=== PATIENT | female | born 1950 | race Caucasian/White ===

== ENCOUNTER → 2018-02-23 | Outpatient (CLI) | payer OTHER ==
[2018-02-23 09:00] LABS: Basophils # (auto) 0 uL; Basophils % (auto) 0.5 % (0.0-2.0); Eosinophils # (auto) 0.3 uL; Eosinophils % (auto) 4.4 % (0.0-7.0); Hematocrit 42.4 % (36.0-46.0); Hemoglobin 14.1 g/dL (12.2-16.2); Lymphocytes # (auto) 1.5 uL; Lymphocytes % (auto) 25.1 % (10.0-50.0); Mean Corpuscular Hemoglobin 31.2 pg (28.0-32.0); Mean Corpuscular Hgb Conc. 33.3 g/dL (32.0-36.0); Mean Corpuscular Volume 93.7 fL (80.0-100.0); Monocytes # (auto) 0.5 uL; Monocytes % (auto) 9.1 % (0.0-12.0); Neutrophils # (auto) 3.6 uL; Neutrophils % (auto) 60.9 % (37.0-80.0); Platelet Count (auto) 229 10^3/uL (140-450); Red Blood Cells 4.53 10^6/uL (4.0-5.20); Red Cell Distribution Width 13.5 % (11.8-14.3); White Blood Cell 5.9 10^3/uL (4.4-10.8)
[2018-02-23 09:26] LABS: T3 Total 0.93 ng/mL (0.60-1.81)
[2018-02-23 09:28] LABS: Free T4 (Free Thyroxine) 0.99 ng/dL (0.89-1.76)
[2018-02-23 09:37] LABS: BUN/Creatinine Ratio 12.8; Bilirubin, Total 0.4 mg/dL (0.2-1.0); Calcium 8.7 mg/dL (8.5-10.1); Potassium 4.2 mmol/L (3.5-5.1); Total Protein 6.9 g/dL (6.4-8.2)
== END | disposition home or self-care (01) ==
LOC: LAB 07:23
PROVIDERS: ATTEND Physician Assistant
DX: Z12.11 Encounter for screening for malignant neoplasm of colon (principal); I10 Essential (primary) hypertension; E78.2 Mixed hyperlipidemia; E03.9 Hypothyroidism, unspecified; I73.00 Raynaud's syndrome without gangrene
CPT/HCPCS: 36415; 80053; 80061; 82270; 84439; 84443; 84480; 85025

== ENCOUNTER → 2019-01-22 | Outpatient (CLI) | payer OTHER ==
[2019-01-22 08:02] LABS: Basophils # (auto) 0 uL; Basophils % (auto) 0.9 % (0.0-2.0); Eosinophils # (auto) 0.2 uL; Eosinophils % (auto) 4.4 % (0.0-7.0); Hematocrit 44.7 % (36.0-46.0); Hemoglobin 15.1 g/dL (12.2-16.2); Lymphocytes # (auto) 1.6 uL; Lymphocytes % (auto) 29.8 % (10.0-50.0); Mean Corpuscular Hemoglobin 31.3 pg (28.0-32.0); Mean Corpuscular Hgb Conc. 33.7 g/dL (32.0-36.0); Mean Corpuscular Volume 92.9 fL (80.0-100.0); Monocytes # (auto) 0.5 uL; Monocytes % (auto) 9.5 % (0.0-12.0); Neutrophils # (auto) 3.1 uL; Neutrophils % (auto) 55.4 % (37.0-80.0); Platelet Count (auto) 210 10^3/uL (140-450); Red Blood Cells 4.81 10^6/uL (4.0-5.20); Red Cell Distribution Width 13.1 % (11.8-14.3); White Blood Cell 5.5 10^3/uL (4.4-10.8)
[2019-01-22 08:36] LABS: Potassium 4.3 mmol/L (3.5-5.1)
[2019-01-22 08:46] LABS: Albumin 4.1 g/dL (3.4-5.0); BUN/Creatinine Ratio 14.6; Bilirubin, Total 0.5 mg/dL (0.2-1.0); Calcium 8.9 mg/dL (8.5-10.1); Total Protein 7.2 g/dL (6.4-8.2)
== END | disposition home or self-care (01) ==
LOC: LAB 07:05
PROVIDERS: ATTEND Physician Assistant
DX: Z00.01 Encounter for general adult medical examination with abnormal findings (principal); E03.9 Hypothyroidism, unspecified; I10 Essential (primary) hypertension; E78.2 Mixed hyperlipidemia; I73.00 Raynaud's syndrome without gangrene
CPT/HCPCS: 36415; 80053; 80061; 84443; 85025

== ENCOUNTER → 2019-07-02 | Outpatient (CLI) | payer OTHER | END | disposition home or self-care (01) | LOC: LAB 10:45 | PROVIDERS: ATTEND Physician Assistant | DX: Z00.00 Encounter for general adult medical examination without abnormal findings (principal); E03.9 Hypothyroidism, unspecified; I10 Essential (primary) hypertension | CPT/HCPCS: 82274 ==

== ENCOUNTER → 2020-02-05 | Outpatient (CLI) | payer OTHER ==
[2020-02-05 07:35] LABS: Basophils # (auto) 0 10 ^3/uL (0-0.2); Basophils % (auto) 0.8 % (0.0-2.0); Eosinophils # (auto) 0.1 10 ^3/uL (0-0.8); Eosinophils % (auto) 1.9 % (0.0-7.0); Hematocrit 47.4 % (36.0-46.0); Hemoglobin 15.8 g/dL (12.2-16.2); Lymphocytes # (auto) 1.4 10 ^3/uL (0.4-5.4); Lymphocytes % (auto) 26.4 % (10.0-50.0); Mean Corpuscular Hgb Conc. 33.3 g/dL (32.0-36.0); Monocytes # (auto) 0.6 10 ^3/uL (0-1.3); Monocytes % (auto) 10.5 % (0.0-12.0); Neutrophils # (auto) 3.3 10 ^3/uL (1.6-8.6); Neutrophils % (auto) 60.4 % (37.0-80.0); Nucleated Red Blood Cells % 0.1 %; Platelet Count (auto) 234 10^3/uL (140-450); Red Blood Cells 5.09 10^6/uL (4.0-5.20); Red Cell Distribution Width 12.9 % (11.8-14.3); White Blood Cell 5.5 10^3/uL (4.4-10.8)
[2020-02-05 07:57] LABS: Albumin 4.3 g/dL (3.4-5.0); Calcium 9.2 mg/dL (8.5-10.1)
[2020-02-05 08:01] LABS: BUN/Creatinine Ratio 12.3; Bilirubin, Total 0.6 mg/dL (0.2-1.0); Total Protein 7.8 g/dL (6.4-8.2)
== END | disposition home or self-care (01) ==
LOC: LAB 07:08
PROVIDERS: ATTEND Physician Assistant
DX: I10 Essential (primary) hypertension (principal); I73.00 Raynaud's syndrome without gangrene; E03.9 Hypothyroidism, unspecified; E78.2 Mixed hyperlipidemia; F43.9 Reaction to severe stress, unspecified; Z80.1 Family history of malignant neoplasm of trachea, bronchus and lung
CPT/HCPCS: 36415; 80053; 80061; 84443; 85025

== ENCOUNTER → 2020-10-07 | Outpatient (CLI) | payer OTHER | END | disposition home or self-care (01) | LOC: LAB 12:46 | PROVIDERS: ATTEND Physician Assistant | DX: Z20.828 Contact with and (suspected) exposure to other viral communicable diseases (principal) ==

== ENCOUNTER → 2022-03-22 | Outpatient (CLI) | payer OTHER | END | disposition home or self-care (01) | LOC: LAB 08:23 | PROVIDERS: ATTEND Nurse Practitioner Family | DX: Z00.00 Encounter for general adult medical examination without abnormal findings (principal); I10 Essential (primary) hypertension; E03.9 Hypothyroidism, unspecified; E78.2 Mixed hyperlipidemia | CPT/HCPCS: 82274 ==

== ENCOUNTER → 2023-02-06 | Outpatient (CLI) | payer OTHER ==
[2023-02-06 07:48] LABS: Basophils # (auto) 0.1 10 ^3/uL (0-0.2); Eosinophils # (auto) 0.1 10 ^3/uL (0-0.8); Eosinophils % (auto) 2.5 % (0.0-7.0); Hematocrit 43.3 % (36.0-46.0); Hemoglobin 14.7 g/dL (12.2-16.2); Lymphocytes # (auto) 1.6 10 ^3/uL (0.4-5.4); Mean Corpuscular Hemoglobin 31.7 pg (28.0-32.0); Mean Corpuscular Hgb Conc. 33.9 g/dL (32.0-36.0); Mean Corpuscular Volume 93.3 fL (80.0-100.0); Monocytes # (auto) 0.6 10 ^3/uL (0-1.3); Monocytes % (auto) 11.9 % (0.0-12.0); Neutrophils % (auto) 55.6 % (37.0-80.0); Nucleated Red Blood Cells % 0.1 %; Red Blood Cells 4.64 10^6/uL (4.0-5.20); Red Cell Distribution Width 13.3 % (11.8-14.3); White Blood Cell 5.4 10^3/uL (4.4-10.8)
[2023-02-06 08:42] LABS: Bilirubin, Total 0.5 mg/dL (0.2-1.0); Calcium 9.2 mg/dL (8.5-10.1)
== END | disposition home or self-care (01) ==
LOC: LAB 07:25
PROVIDERS: ATTEND Nurse Practitioner Family
DX: I10 Essential (primary) hypertension (principal); E78.2 Mixed hyperlipidemia; E03.9 Hypothyroidism, unspecified
CPT/HCPCS: 36415; 80053; 80061; 82270; 82306; 84439; 84443; 85025; 86803

== ENCOUNTER → 2023-07-17 | Outpatient (CLI) | payer OTHER | END | disposition home or self-care (01) | LOC: EEVIPCON → XYW 10:32 | PROVIDERS: ATTEND Student in an Organized Health Care Education/Training Program | DX: I34.0 Nonrheumatic mitral (valve) insufficiency (principal); R07.9 Chest pain, unspecified; I51.7 Cardiomegaly | CPT/HCPCS: 93306 ==

== ENCOUNTER → 2023-09-18 | Outpatient (CLI) | payer OTHER ==
[~2023-09-18] VITALS: Ht 165.1 cm; Wt 76.2 kg
[~2023-09-18] MED LIST: ADENOSINE 64 MG in GIVE UN-DILUTED 0 ML IV STA
== END | disposition home or self-care (01) ==
LOC: XYW 08:00
PROVIDERS: ATTEND Student in an Organized Health Care Education/Training Program
DX: R07.9 Chest pain, unspecified (principal); I10 Essential (primary) hypertension; E78.5 Hyperlipidemia, unspecified
CPT/HCPCS: 78452; 93017; A9500; J0153

== ENCOUNTER → 2023-11-01 | Outpatient (CLI) | payer OTHER ==
[2023-11-01 09:05] LABS: Lipase 50 U/L (12-53)
[2023-11-01 09:06] LABS: Amylase 293 U/L (30-118)
== END | disposition home or self-care (01) ==
LOC: LAB 07:02
PROVIDERS: ATTEND Nurse Practitioner Family
DX: R12 Heartburn (principal)
CPT/HCPCS: 36415; 82150; 82274; 83690

== ENCOUNTER → 2024-08-16 | Outpatient (CLI) | payer OTHER ==
[2024-08-16 07:47] LABS: Basophils # (auto) 0.1 10 ^3/uL (0-0.2); Basophils % (auto) 0.9 % (0.0-2.0); Eosinophils # (auto) 0.1 10 ^3/uL (0-0.8); Eosinophils % (auto) 2.1 % (0.0-7.0); Hematocrit 44.1 % (36.0-46.0); Hemoglobin 14.9 g/dL (12.2-16.2); Lymphocytes # (auto) 1.8 10 ^3/uL (0.4-5.4); Lymphocytes % (auto) 30.7 % (10.0-50.0); Mean Corpuscular Hemoglobin 31.6 pg (28.0-32.0); Mean Corpuscular Hgb Conc. 33.9 g/dL (32.0-36.0); Mean Corpuscular Volume 93.2 fL (80.0-100.0); Monocytes # (auto) 0.6 10 ^3/uL (0-1.3); Monocytes % (auto) 10.1 % (0.0-12.0); Neutrophils # (auto) 3.3 10 ^3/uL (1.6-8.6); Neutrophils % (auto) 56.2 % (37.0-80.0); Platelet Count (auto) 285 10^3/uL (140-450); Red Blood Cells 4.73 10^6/uL (4.0-5.20); Red Cell Distribution Width 12.9 % (11.8-14.3)
[2024-08-16 08:30] LABS: Alanine Aminotransferase 19 U/L (7-40); Albumin 4.5 g/dL (3.2-4.8); Alkaline Phosphatase 50 U/L (46-116); Anion Gap 7 (5-15); Aspartate Aminotransferase 18 U/L (13-40); BUN/Creatinine Ratio 11.8 (10.0-20.0); Blood Urea Nitrogen 12 mg/dL (9-23); Calcium 9.3 mg/dL (8.7-10.4); Carbon Dioxide 28 mmol/L (20-31); Chloride 107 mmol/L (98-107); Cholesterol 178 mg/dL (< 200); Glucose 104 mg/dL (74-106); HDL Cholesterol 43 mg/dL (40-59); LDL Cholesterol 119 mg/dL (< 100); Potassium 4.2 mmol/L (3.5-5.1); Sodium 142 mmol/L (136-145); Triglycerides 122 mg/dL (< 150)
[2024-08-16 08:31] LABS: Bilirubin, Total 0.5 mg/dL (0.2-1.0); Total Protein 6.9 g/dL (5.7-8.2)
== END | disposition home or self-care (01) ==
LOC: LAB 07:17
PROVIDERS: ATTEND Nurse Practitioner Family
DX: Z00.01 Encounter for general adult medical examination with abnormal findings (principal); E03.9 Hypothyroidism, unspecified; E78.5 Hyperlipidemia, unspecified
CPT/HCPCS: 36415; 80053; 80061; 84443; 85025

== ENCOUNTER → 2024-08-27 | Outpatient (CLI) | payer OTHER | END | disposition home or self-care (01) | LOC: LAB 13:50 | PROVIDERS: ATTEND Nurse Practitioner Family | DX: Z12.11 Encounter for screening for malignant neoplasm of colon (principal); Z00.01 Encounter for general adult medical examination with abnormal findings; E78.5 Hyperlipidemia, unspecified; E03.9 Hypothyroidism, unspecified | CPT/HCPCS: 82270 ==

== ENCOUNTER → 2024-12-13 | Outpatient (CLI) | payer OTHER ==
[2024-12-14 08:07] LABS: AFP Serum Tumor Marker 2.2 ng/mL (0.0-9.2)
== END | disposition home or self-care (01) ==
LOC: LAB 07:12
PROVIDERS: ATTEND Specialist
DX: Z86.19 Personal history of other infectious and parasitic diseases (principal)
CPT/HCPCS: 82105

== ENCOUNTER → 2025-03-15 | Day surgery (SDC) | payer OTHER ==
[2025-03-12 08:56] LABS: Basophils # (auto) 0 10 ^3/uL (0-0.2); Basophils % (auto) 0.7 % (0.0-2.0); Eosinophils # (auto) 0.1 10 ^3/uL (0-0.8); Eosinophils % (auto) 2.4 % (0.0-7.0); Hematocrit 43.7 % (36.0-46.0); Lymphocytes # (auto) 1.5 10 ^3/uL (0.4-5.4); Lymphocytes % (auto) 27.6 % (10.0-50.0); Mean Corpuscular Hemoglobin 31.7 pg (28.0-32.0); Mean Corpuscular Hgb Conc. 34.2 g/dL (32.0-36.0); Mean Corpuscular Volume 92.7 fL (80.0-100.0); Monocytes # (auto) 0.7 10 ^3/uL (0-1.3); Monocytes % (auto) 13.1 % (0.0-12.0); Neutrophils # (auto) 3.1 10 ^3/uL (1.6-8.6); Neutrophils % (auto) 56.2 % (37.0-80.0); Platelet Count (auto) 215 10^3/uL (140-450); Red Blood Cells 4.72 10^6/uL (4.0-5.20); Red Cell Distribution Width 13.1 % (11.8-14.3); White Blood Cell 5.5 10^3/uL (4.4-10.8)
[2025-03-12 09:13] LABS: INR 1.01 (0.9-1.15); Partial Thromboplastin Time 27.9 SEC (24.5-34.5); Prothrombin Time 10.7 sec (9.3-11.8)
[2025-03-12 09:19] LABS: Alanine Aminotransferase 22 U/L (7-40); Alkaline Phosphatase 51 U/L (46-116); Anion Gap 8 (5-15); BUN/Creatinine Ratio 10.9 (10.0-20.0); Blood Urea Nitrogen 12 mg/dL (9-23); Calcium 9.9 mg/dL (8.7-10.4); Carbon Dioxide 28 mmol/L (20-31); Chloride 106 mmol/L (98-107); Glucose 104 mg/dL (74-106); Potassium 4.2 mmol/L (3.5-5.1); Sodium 142 mmol/L (136-145)
[2025-03-12 09:20] LABS: Albumin 4.7 g/dL (3.2-4.8); Aspartate Aminotransferase 19 U/L (13-40); Bilirubin, Total 0.6 mg/dL (0.2-1.0)
[~2025-03-15] VITALS: Ht 165.1 cm; Wt 75.7 kg
[~2025-03-15] MED LIST changes: -ADENOSINE 64 MG in GIVE UN-DILUTED 0 ML IV STA; +ALEN70SO2 OR; +AML5T GT; +ATOR10TA52 PO; +CALC-509 PO; +ESCI1TAB36 PO; +LEVO-848 GT; +LOSA-533 PO; +MAGN100T6 OR; +OMEP20TA PO
[2025-03-15] MEDS: MIDAZOLAM HCL 2MG/2ML 2ml VIAL (1mg/ml) ONE (09:43)
[2025-03-15] MEDS: fentaNYL CITRATE 100 MCG/2 ML VL ONE (09:43)
[2025-03-15 10:00] VITALS: PULSE 75; RESP 18; TEMP 97.8; O2SAT 99
--- NOTE | 2025-03-15 10:01 | DVHNC2 ---
Procedure - PROCEDURE DATE: 03/15/2025 PROCEDURE PERFORMED BY: BAMBI HIGGINS MD REFERRING PROVIDER: JAYME IBANEZ NP, MD PROCEDURE PERFORMED: 1. COLONOSCOPY WITH MODERATE SEDATION 2. COLONOSCOPY WITH POLYPECTOMY WITH COLD BIOPSY FORCEPS PRE-PROCEDURE DIAGNOSIS: 1. COLON CANCER SCREENING POSTPROCEDURE DIAGNOSIS: 1. SMALL SIGMOID COLON POLYP 4 MM 2. 1+ INTERNAL HEMORRHOIDS 3. MILD WEBBER DIVERTICULOSIS INDICATION FOR PROCEDURE: THE PATIENT IS A 75 YEAR-OLD FEMALE WHO PRESENTS FOR OUTPATIENT COLONOSCOPY FOR SCREENING WITH LAST COLONOSCOPY WAS MORE THAN 10 YEARS AGO MEDICATIONS USED: 6 MG OF VERSED AND 100 MCG OF FENTANYL IV WAS GIVEN IN INCREMENTAL DOSES DETAILS OF THE PROCEDURE: INFORMED CONSENT WAS OBTAINED AFTER RISKS BENEFITS AND ALTERNATIVES WERE DISCUSSED AT LENGTH WITH THE PATIENT. THE PATIENT GAVE CONSENT TO THE PROCEDURE WELL THE MEDICATION USED FOR SEDATION. THE PATIENT WAS PLACED IN THE LEFT LATERAL DECUBITUS POSITION. DIGITAL RECTAL EXAM SHOWED SMALL INTERNAL HEMORRHOIDS. AN OLYMPUS VARIABLE TORSION PEDIATRIC COLONOSCOPE WAS INSERTED INTO THE RECTUM AND ADVANCED TO THE CECUM. THE CECUM WAS IDENTIFIED BY THE ILEOCECAL VALVE AND THE APPENDICEAL ORIFICE. THE SCOPE WAS THEN WITHDRAWN. THE PREP WAS GOOD WITH SMALL AMOUNTS OF STOOL. BOSTON BOWEL PREP SCORE OF EIGHT WAS NOTED. THERE WERE NO LARGE POLYPS, MASSES, STRICTURES, OR ARTERIOVENOUS MALFORMATION SEEN. THE PATIENT HAD MILD RIGHT AND LEFT-SIDED DIVERTICULOSIS. THERE WAS ONE SMALL 4 MM POLYP REMOVED COMPLETELY WITH COLD BIOPSY FORCEPS IN THE SIGMOID COLON. RETROFLEXION SHOWED 1+ INTERNAL HEMORRHOIDS. THE PATIENT TOLERATED THE PROCEDURE WELL START TIME: 0948 CECUM TIME: 0951 END TIME: 0958 IMPRESSION: 1. ONE SMALL COLON POLYP, MILD RIGHT AND LEFT-SIDED DIVERTICULOSIS AND INTERNAL HEMORRHOIDS RECOMMENDATIONS: 1. FOLLOW UP WITH ME IN CLINIC FOR PATHOLOGY RESULTS 2. HIGH-FIBER DIET 3. CONSIDER MEDICATION INDUCED SYMPTOMS VERSUS IBS VERSUS OTHER 4. REPEAT COLONOSCOPY IN FIVE YEARS UNLESS OTHERWISE INDICATED BY PATHOLOGY OR SYMPTOMS I WOULD LIKE TO THANK [facility] FOR THIS REFERRAL BAMBI HIGGINS MD March 15, 2025 10:01
[2025-03-15 10:45] VITALS: BP 106/69; PULSE 73; RESP 15; O2SAT 95
== END | disposition home or self-care (01) ==
LOC: GI 08:21
PROVIDERS: ATTEND Specialist
DX: Z12.11 Encounter for screening for malignant neoplasm of colon (principal); D12.5 Benign neoplasm of sigmoid colon; K64.8 Other hemorrhoids; K57.30 Diverticulosis of large intestine without perforation or abscess without bleeding; I10 Essential (primary) hypertension; E78.00 Pure hypercholesterolemia, unspecified; F32.A Depression, unspecified; E03.9 Hypothyroidism, unspecified; Z88.2 Allergy status to sulfonamides; Z79.890 Hormone replacement therapy; Z79.899 Other long term (current) drug therapy; Z98.890 Other specified postprocedural states; Z90.89 Acquired absence of other organs; Z98.51 Tubal ligation status
CPT/HCPCS: 36415; 45380; 80053; 85025; 85610; 85730; 88305; J2250; J3010; 99152

== ENCOUNTER → 2025-06-03 | Outpatient (CLI) | payer OTHER ==
[2025-06-03 06:28] LABS: Hematocrit 42.6 % (36.0-46.0); Hemoglobin 14.6 g/dL (12.2-16.2); Mean Corpuscular Hemoglobin 31.8 pg (28.0-32.0); Mean Corpuscular Volume 92.6 fL (80.0-100.0); Nucleated Red Blood Cells % 0.0 %
[2025-06-03 07:32] LABS: Alanine Aminotransferase 23 U/L (7-40); Albumin 4.6 g/dL (3.2-4.8); Alkaline Phosphatase 62 U/L (46-116); Anion Gap 9 (5-15); BUN/Creatinine Ratio 12.4 (10.0-20.0); Bilirubin, Total 0.4 mg/dL (0.2-1.0); Blood Urea Nitrogen 13 mg/dL (9-23); Calcium 9.4 mg/dL (8.7-10.4); Carbon Dioxide 27 mmol/L (20-31); Chloride 105 mmol/L (98-107); Cholesterol 185 mg/dL (< 200); Glucose 92 mg/dL (74-106); HDL Cholesterol 46 mg/dL (40-59); Potassium 4.2 mmol/L (3.5-5.1); Sodium 141 mmol/L (136-145); Total Protein 6.7 g/dL (5.7-8.2); Triglycerides 103 mg/dL (< 150)
== END | disposition home or self-care (01) ==
LOC: LAB 06:05
PROVIDERS: ATTEND Nurse Practitioner Family
DX: I12.9 Hypertensive chronic kidney disease with stage 1 through stage 4 chronic kidney disease, or unspecified chronic kidney disease (principal); N18.31 Chronic kidney disease, stage 3a; E03.9 Hypothyroidism, unspecified; Z00.01 Encounter for general adult medical examination with abnormal findings
CPT/HCPCS: 36415; 80053; 80061; 84443; 85025